=== PATIENT | female | born 1985 | race Caucasian/White ===

== ENCOUNTER 2024-04-25 12:00 | Outpatient (CLI) | payer MEDICAID ==
[~2024-04-25 12:00] MED LIST: HYDR-4383 PO; IBUP200C5 PO
== END 2024-05-01 23:59 | disposition home or self-care (01) ==
LOC: MRI02 12:00
PROVIDERS: ATTEND Family Medicine
DX: M47.26 Other spondylosis with radiculopathy, lumbar region (principal); M54.50 Low back pain, unspecified
CPT/HCPCS: 72148